=== PATIENT | female | born 1945 | race Caucasian/White ===

== ENCOUNTER → 2018-04-11 | Outpatient (CLI) | payer MEDICARE, OTHER ==
[~2018-04-11] MED LIST: REGADENOSON 0.4 MG/5 ML SYR IV ONE
--- NOTE | 2018-04-11 16:06 | Cardiology Report ---
DATE OF STUDY: April 11, 2018 NUCLEAR GATED MYOCARDIAL PERFUSION SCAN Nuclear gated myocardial perfusion scan performed as per protocol at [facility] done on 04/11/2018. Lexiscan injected 0.4 mg intravenously as stress agent. Myoview injected 10.8 mCi for resting protocol and 33 mCi for stress protocol. The patient drank coffee prior to the stress images. The patient got an apical anterior inferior wall scar noted. Left ventricular ejection fraction is 30%. No obvious ischemia noted. However, I will clinically evaluate one more time. If necessary, we will repeat this Lexiscan report. IMPRESSION: No obvious ischemia. Only a scar is noted. Left ventricular ejection fraction is about 30%. Job#: [id number]
== END ==
LOC: NM 09:26
PROVIDERS: ATTEND Internal Medicine Cardiovascular Disease
DX: R07.9 Chest pain, unspecified (principal)
CPT/HCPCS: 78452; 93017; A9502